=== PATIENT | male | born 1960 | race Caucasian/White ===

== ENCOUNTER 2023-11-17 08:16 | Outpatient (CLI) | payer BC, SELFPAY ==
--- NOTE | 2023-11-17 08:17 | CA_ITS ---
APPROVED REPORT EXAM: Limited 2D, Doppler, and color-flow Echocardiogram Laundry Manager: Kiersten Atkins RVT Ht: 5 ft 2 in Wt: 110lbs BSA: 1.48 BP: 113/58 mmHg Indications: EF CHECK,LIFEVEST IN PLACE,CAD,VALUE REPLACED (AO) 09/19/23,CHF,DIALYSIS M-Mode Dimensions RVDd 2.69 cm (0.9-2.6) LA Diam 2.72 cm (1.9-4.0) LVDd 4.47 cm (3.5-5.7) LVDs 3.49 cm (3.5-5.7) IVSd 0.98 cm (0.6-1.1) PWd 0.55 cm (0.6-1.1) EF (Teich) 44.50% FS 21.90% EDV (Teich) 91.00 mL ESV (Teich) 50.50 mL Aortic Valve MAX Index 1.10 cm2/m2 AoV Peak Baljinder. 273.0 (50-130 cm/s) AO Peak GR. 29.80 mmHg AO Mean GR. 13.60 (<5 mmHg) AO VTI 41.0 (18-25 cm) MAX (VTI) 1.67 (2.5-4.5 cm2) Other Information Study Quality: Fair Conclusion This is a limited TTE to evaluate for LVEF. Limited windows are obtained. The left ventricle size is normal. There is normal LV wall thickness. The anterior and anteroseptal LV mcbride are moderately hypokinetic. LVEF is 45%. s/p AVR. The aortic valve prosthesis is well-seated, but gradients are not assessed in this limited study. Electronically signed by : Archana Kim MD 11/18/2023 16:31:19
== END 2023-11-17 23:59 ==
LOC: RT 08:17
PROVIDERS: PCP Emergency Medicine; Visit Provider Nurse Practitioner
DX: I25.10 Atherosclerotic heart disease of native coronary artery without angina pectoris (principal); I50.20 Unspecified systolic (congestive) heart failure; R01.1 Cardiac murmur, unspecified; Z95.3 Presence of xenogenic heart valve
CPT/HCPCS: 93308

== ENCOUNTER 2024-01-30 10:12 | Day surgery (SDC) | payer BC, SELFPAY ==
[2024-01-30 10:51] VITALS: BP 188/88; PULSE 74; RESP 18; TEMP 36.9; O2SAT 95; BMI 20.5
[2024-01-30] MEDS: LIDOCAINE 2% W/EPI 1:100,000 20ML VIAL 20 ML IJ (11:55)
[2024-01-30 12:30] VITALS: BP 175/93; PULSE 74; RESP 18; O2SAT 97
[2024-01-30] MEDS: MIDAZOLAM HCL 1MG/1ML 5ML VIAL 1 MG IV (12:32)
[2024-01-30] MEDS: FENTANYL 100MCG/2ML VIAL 50 MCG IV (12:32)
[2024-01-30 12:43] VITALS: BP 170/96; PULSE 71; RESP 18; O2SAT 92
[2024-01-30 13:00] VITALS: BP 168/82; PULSE 74; RESP 20; O2SAT 92
== END 2024-01-30 13:33 | disposition home or self-care (01) ==
PROVIDERS: PCP Emergency Medicine; Visit Provider Internal Medicine
DX: Z49.01 Encounter for fitting and adjustment of extracorporeal dialysis catheter (principal)
CPT/HCPCS: 36589; 99152

== ENCOUNTER 2025-01-17 12:41 | Outpatient (CLI) | payer BC, SELFPAY ==
--- NOTE | 2025-01-17 | CA_ITS ---
APPROVED REPORT EXAM: Comprehensive 2D, Doppler, and color-flow Echocardiogram Chargeback Analyst: Dari Brandt RT(R) Ht: 5 ft 3 in Wt: 143lbs BSA: 1.68 BP: 106/61 mmHg Indications: AV replacement, murmur, HTN, hyperlipidemia, HFrEF, CAD, porcine AV valve 2022, hx AFIB. 2D Dimensions LVEF (Wilkins's) 58.80 % M: 52 - 72 LV Volume 55.60 mL M: 62 - 150 LV Volume Index 33.1 mL/m2 M: 34 - 74 LA Volume 12.20 mL LA Volume Index 7.26 mL/m2 (M/F) 16-34 EF AP4 53.50 % EF AP2 62.4 % EF BP 58.8 % GL Strain -12.0 % M-Mode Dimensions RVDd 3.14 cm (0.9-2.6) LA Diam 2.62 cm (1.9-4.0) LVDd 3.82 cm (3.5-5.7) LVDs 2.93 cm (3.5-5.7) IVSd 0.79 cm (0.6-1.1) PWd 0.79 cm (0.6-1.1) EF (Teich) 47.40% FS 23.30% EDV (Teich) 62.70 mL ESV (Teich) 33.00 mL LV Diastology E Decel Time 147 (160-240 msec) E/A Ratio 0.8 Aortic Valve MAX Index 0.96 cm2/m2 AoV Peak Baljinder. 285.0 (50-130 cm/s) AO Peak GR. 32.60 mmHg AO Mean GR. 16.00 (<5 mmHg) AO VTI 59.6 (18-25 cm) MAX (VTI) 1.65 (2.5-4.5 cm2) Mitral Valve MV E Max Baljinder. 76.0 (40-130 cm/s) MV A Velocity 99.0 (40-130 cm/s) E/A Ratio 0.77 MV PHT 43.0 ms Tricuspid Valve TR P. Velocity 270.00 cm/s RAP Estimate 10.00 mmHg RVSP 39.10 mmHg Left Ventricle The left ventricle is normal size. The left ventricular systolic function is low normal. There is increased overall thickness. The septal and anterior septal LV mcbride are mildly hypokinetic. Diastolic function is indeterminate. LVEF is 50%. Right Ventricle The right ventricle is normal size. The right ventricular systolic function is normal. Atria The left atrium size is normal. The right atrium size is normal. There is no Doppler evidence of interatrial shunt. Aortic Valve s/p bioprosthetic AVR. The prosthesis is well-seated. Peak velocity 2.9 m/s. Mean AV gradient 17 mmHg. Max AV gradient 36 mmHg. Trace aortic regurgitation. Mitral Valve Mitral valve leaflets are mildly thickened. Mild mitral regurgitation. No evidence of mitral valve stenosis. Tricuspid Valve Tricuspid valve is grossly normal in structure and function. Mild tricuspid regurgitation. RVSP is 25-30 mmHg. Pulmonic Valve The pulmonary valve is normal in structure. Trace pulmonic regurgitation. Great Vessels The aortic root is normal in size. IVC is normal in size and collapses >50% with inspiration. Pericardium There is no pericardial effusion. Other Information Study Quality: Fair Conclusion Low normal LV systolic function (LVEF 50%). The septal and anterior septal LV mcbride are mildly hypokinetic. s/p bioprosthetic AVR. Peak transaortic velocity 2.9 m/s. Mean AV gradient 17 mmHg. Max AV gradient 36 mmHg. Mild MR, mild TR. The transaortic gradients are slightly elevated, but compared to prior limited TTE study from 11/17/2023, the overall peak velocity and gradients are grossly unchanged. Electronically signed by : Archana Kim MD 01/23/2025 22:30:45
== END 2025-01-17 23:59 | disposition home or self-care (01) ==
LOC: RT 12:42
PROVIDERS: PCP Emergency Medicine; Visit Provider Physician Assistant
DX: I50.22 Chronic systolic (congestive) heart failure (principal)
CPT/HCPCS: 93306